=== PATIENT | female | born 1985 | race African-American/Black ===

== ENCOUNTER 2017-03-11 14:26 | Emergency (ER) | payer MEDICAID ==
[~2017-03-11] VITALS: Ht 165.1 cm; Wt 79.4 kg
[2017-03-11 14:31] VITALS: BP 117/61
[2017-03-11] MEDS ORDERED: IBUPROFEN 200 MG TABLET ONE (14:36)
[2017-03-11] MEDS ORDERED: ACETAMINOPHEN 325 MG TABLET ONE (14:36)
[2017-03-11] MEDS ORDERED: IBUPROFEN 600 MG TABLET PO ONE (15:00)
[2017-03-11] MEDS ORDERED: ACETAMINOPHEN 650 MG/20.3 ML UDC PO ONE (15:00)
== END 2017-03-11 15:43 | disposition home or self-care (01) ==
LOC: ER 14:27
DX: R51 Headache (principal); Z88.0 Allergy status to penicillin; Z88.1 Allergy status to other antibiotic agents
CPT/HCPCS: 99283; A4606; Z7610